=== PATIENT | female | born 1990 | race Asian ===

== ENCOUNTER 2017-09-12 03:52 | Inpatient (IN) | payer SELFPAY ==
[~2017-09-12] VITALS: Ht 157.5 cm; Wt 67.1 kg
[2017-09-12] MEDS ORDERED: AMPICILLIN SODIUM 2 GM VIAL ONE (04:35)
[2017-09-12] MEDS: LR 1,000 ML IV SCH ×2 (04:50→07:33)
[2017-09-12] MEDS ORDERED: fentaNYL CITRATE/PF 100 MCG/2 ML AMP ONE (04:53)
[2017-09-12] MEDS ORDERED: ROPIVACAINE 0.2% 100 ML ONE (04:53)
[2017-09-12] MEDS ORDERED: LR 1,000 ML IV ONE (04:56)
[2017-09-12] MEDS ORDERED: OXYTOCIN/0.9 % SODIUM CHLORIDE 1,000 ML IV SCH ×2 (04:56→10:03)
[2017-09-12] MEDS ORDERED: TERBUTALINE SULFATE 1 MG/ML VIAL SUBCUT ONE (05:00)
[2017-09-12] MEDS ORDERED: AMPICILLIN SODIUM 2 GM in NS 100 ML IV ONE (05:00)
[2017-09-12] MEDS ORDERED: NALBUPHINE HCL 10 MG/ML AMP IVP PRN (05:00)
[2017-09-12] MEDS ORDERED: AMPICILLIN SODIUM 1 GM in NS 50 ML IV SCH (05:00)
[2017-09-12 05:15] LABS: BASOPHILS % (AUTO) 0.4 % (0.0-2.0); EOSINOPHILS % (AUTO) 0.5 % (0.0-4.0); HEMATOCRIT 37.1 % (36-48); HEMOGLOBIN 12.3 g/dL (12.0-16.0); LYMPHOCYTES # (AUTO) 1.5 K/uL (1.0-5.5); LYMPHOCYTES % (AUTO) 18.1 % (20.5-51.5); MEAN CORPUSCULAR HEMOGLOBIN 31 pg (27-31); MEAN CORPUSCULAR HGB CONC 33 % (32-36); MEAN CORPUSCULAR VOLUME 93 fL (79.0-98.0); MONOCYTES # (AUTO) 0.5 K/uL (0.0-1.0); MONOCYTES % (AUTO) 6.7 % (1.7-9.3); NEUTROPHILS # (AUTO) 6.2 K/uL (1.8-7.7); NEUTROPHILS % (AUTO) 74.3 % (40.0-70.0); PLATELET COUNT (AUTO) 185 K/uL (130-430); RED BLOOD CELL COUNT(AUTO) 4.01 MIL/uL (4.2-6.2); WHITE BLOOD COUNT (AUTO) 8.2 K/uL (4.8-10.8)
[2017-09-12] MEDS ORDERED: LR 500 ML IV ONE (05:43)
[2017-09-12] MEDS ORDERED: FENT2mCg/mL-ROPIVA0.2%/NS EPID 150 ML EP SCH (05:45)
[2017-09-12] MEDS: IBUPROFEN 600 MG TABLET PO SCH ×2 (05:50→18:12)
[2017-09-12 06:42] VITALS: BP_SYST 114
[2017-09-12] MEDS ORDERED: OXYTOCIN/0.9 % SODIUM CHLORIDE 1,000 ML IV ONE (10:03)
[2017-09-12] MEDS ORDERED: DERMOPLAST SPRAY TP PRN (10:15)
[2017-09-12] MEDS ORDERED: METHYLERGONOVINE MALEATE 0.2 MG TABLET PO PRN (10:15)
[2017-09-12] MEDS ORDERED: TEMAZEPAM 15 MG CAPSULE PO PRN (10:15)
[2017-09-12] MEDS ORDERED: GLYCERIN/WITCH HAZEL (TUCKS PADS) TP PRN (10:15)
[2017-09-12] MEDS ORDERED: SENNOSIDES/DOCUSATE SODIUM 1 TAB TABLET(SENOKOT-S) PO PRN (10:15)
[2017-09-12] MEDS ORDERED: ANUSOL 1 EA SUPP.RECT (PREPARATION H) RC PRN (10:15)
[2017-09-12] MEDS ORDERED: HYDROCORTISONE 0.5%, 28.35 GM TOPICAL CREAM TP PRN (10:15)
[2017-09-12] MEDS ORDERED: MEASLES,MUMPS&RUBELLA VACC/PF 12500 UNIT/0.5 ML VIAL SUBQ PRN (10:15)
[2017-09-12] MEDS ORDERED: HYDROcodone/ACETAMIN 5-325 MG TAB (NORCO/ VICODIN) PO PRN ×2 (10:15)
[2017-09-12] MEDS ORDERED: LANOLIN 7 GM OINT. TP PRN (10:15)
[2017-09-12] MEDS ORDERED: RHO(D) IMMUNE GLOBULIN/MALTOSE 1500 UNITS/1.3 ML (WINHRO) IM PRN (10:15)
[2017-09-12] MEDS ORDERED: ACETAMINOPHEN 325 MG TABLET PO PRN (10:15)
[2017-09-12] MEDS: DOCUSATE SODIUM 100 MG CAPSULE PO PRN (18:12)
[2017-09-13 05:45] LABS: HEMATOCRIT 31.1 % (36-48); HEMOGLOBIN 10.4 g/dL (12.0-16.0)
[2017-09-13] MEDS: DOCUSATE SODIUM 100 MG CAPSULE PO PRN ×2 (05:50→06:00)
[2017-09-13] MEDS: IBUPROFEN 600 MG TABLET PO SCH ×3 (05:50→17:45)
== END 2017-09-13 19:15 | disposition home or self-care (01) | DRG 775 ==
LOC: SPU 03:52 → UNDOADMIN 04:32 → SPU 04:32
PROVIDERS: ADMIT Obstetrics & Gynecology; ATTEND Obstetrics & Gynecology
PROC: 0HQ9XZZ Repair Perineum Skin, External Approach (ICD-10-PCS; principal; 2017-09-12)
PROC: 10E0XZZ Delivery of Products of Conception, External Approach (ICD-10-PCS; 2017-09-12)
PROC: 3E0S3BZ Introduction of Anesthetic Agent into Epidural Space, Percutaneous Approach (ICD-10-PCS; 2017-09-12)
PROC: 00HU33Z Insertion of Infusion Device into Spinal Canal, Percutaneous Approach (ICD-10-PCS; 2017-09-12)
DX: O69.81X0 Labor and delivery complicated by cord around neck, without compression, not applicable or unspecified (principal); O70.0 First degree perineal laceration during delivery; O77.0 Labor and delivery complicated by meconium in amniotic fluid; Z37.0 Single live birth; Z3A.39 39 weeks gestation of pregnancy
CPT/HCPCS: 36415; 85018-TC; 85025; 86592; 86886; 86900; 86901; 94760; J0290; J2590; J2795; J3010